=== PATIENT | female | born 1970 | race Asian ===

== ENCOUNTER → 2024-08-02 | Outpatient (CLI) | payer OTHER, SELFPAY ==
--- NOTE | 2024-08-02 | XR_ITS ---
Examination: Lumbar spine, 5 views Technique: Lumbar spine AP, lateral, coned lateral lower lumbar spine, bilateral obliques 5 views Exam date and time: August 02, 2024 1143 hrs. Indications: Low back pain. Findings: Lumbar levoscoliosis 12 degrees No lumbar fracture Mild diffuse lumbar disc narrowing Intact pedicles Impression: Mild diffuse lumbar disc narrowing
== END | disposition home or self-care (01) ==
PROVIDERS: PCP Internal Medicine; Referring Provider Internal Medicine; Visit Provider Internal Medicine
DX: M48.061 Spinal stenosis, lumbar region without neurogenic claudication (principal)
CPT/HCPCS: 72110

== ENCOUNTER → 2024-08-29 | Outpatient (CLI) | payer OTHER, SELFPAY ==
[2024-08-29 10:04] LABS: Collection Type, Urine Clean Catch
[2024-08-29 10:39] LABS: Basophils # (Auto) 0.1 Thou/mm3 (0.0-0.2); Basophils % (Auto) 1 % (0-2.5); Eosinophils # (Auto) 0.2 Thou/mm3 (0.0-0.5); Eosinophils % (Auto) 3 % (0-10); Hematocrit 44.8 % (36.0-46.0); Hemoglobin 14.4 g/dL (12.0-16.0); Immature Granulocytes % (Auto) 0 % (0-0); Immature Granulocytes Auto 0.01 Thou/mm3 (0.00-0.00); Lymphocytes # (Auto) 2.6 Thou/mm3 (1.0-4.8); Lymphocytes % (Auto) 34 % (10-50); Mean Corpuscular HGB Conc 32.1 g/dl (31.0-37.0); Mean Corpuscular Hemoglobin 26.8 pg (25.0-35.0); Mean Corpuscular Volume 83 fL (80-100); Monocytes # (Auto) 0.4 Thou/mm3 (0.0-0.8); Monocytes % (Auto) 5 % (0-12); Neutrophils # (Auto) 4.4 Thou/mm3 (1.8-7.7); Neutrophils % (Auto) 57 % (37-80); Nucleated Red Blood Cell % 0 /100 WBC (0); Platelet Count 297 Thou/mm3 (140-440); RDW Standard Deviation 40.7 fL (36.4-46.3); Red Blood Count 5.37 Miln/mm3 (4.00-5.20); White Blood Count 7.7 Thou/mm3 (3.6-11.0)
[2024-08-29 10:53] LABS: Bilirubin,Urine Negative (Negative); Blood,Urine Trace (Negative); Clarity,Urine Clear (Clear/Hazy); Color,Urine Lt-Yellow (Lt Yel-Yel); Culture Indicated,Urine Not Indicated; Glucose, Urine Negative (Negative); Ketones,Urine Negative (Negative); Leukocyte Esterase,Urine Positive (Negative); Nitrite,Urine Negative (Negative); Protein,Urine Negative (Neg - Trace); RBC,Urine 1 /hpf (0-3); Specific Gravity,Urine 1.026 (1.001-1.035); Squamous Epithelial Cell,Urine 4 /hpf (0-5); Urobilinogen,Urine Negative mg/dL (0.0-1.0); WBC,Urine 6 /hpf (0-5)
[2024-08-29 11:32] LABS: Alanine Aminotransferase 26 U/L (10-49); Albumin, Serum 4.5 gm/dL (3.5-5.0); Albumin/Globulin Ratio 1.5 (1.2-2.2); Alkaline Phosphatase 77 U/L (46-116); Anion Gap 9 (7-16); Aspartate Amino Transferase 20 U/L (0-34); BUN/Creatinine Ratio 24 Ratio (12-20); Bilirubin,Total 0.6 mg/dL (0.3-1.2); Blood Urea Nitrogen 19 mg/dL (9-23); Carbon Dioxide 26.1 mMol/L (20.0-31.0); Cardiac Risk Estimate 3.7 RATIO (3.7-5.6); Chloride 105 mMol/L (98-107); Cholesterol 210 mg/dL (132-200); Creatinine (Component) 0.8 mg/dL (0.6-1.3); Free T4 (Free Thyroxine) 1.21 ng/dL (0.89-1.76); Glucose 127 mg/dL (74-106); HDL Cholesterol 57 mg/dL (40-60); LDL Cholesterol,Calculated 109 mg/dL (0-130); Osmolality,Calculated 283 (275-295); Potassium 4.4 mMol/L (3.4-5.1); Sodium 140 mMol/L (136-145); Thyroid Stimulating Hormone 0.81 uIU/mL (0.55-4.78); Total Protein 7.5 gm/dL (5.7-8.2); Triglycerides 218 mg/dL (30-150); eGFR > 60 See Note
== END | disposition home or self-care (01) ==
LOC: COPL 09:13
PROVIDERS: PCP Internal Medicine; Referring Provider Internal Medicine; Visit Provider Internal Medicine
DX: I10 Essential (primary) hypertension (principal)
CPT/HCPCS: 36415; 80053; 80061; 81001; 84439; 84443; 85025

== ENCOUNTER → 2024-09-02 | Outpatient (CLI) | payer OTHER, SELFPAY ==
[2024-09-02 08:51] LABS: OBS Performed By LAB; OBS QC OK? Yes
[2024-09-02 13:58] LABS: Occult Blood, Stool Negative (Negative); Occult Blood, Stool #2 Negative (Negative); Occult Blood, Stool #3 Negative (Negative)
[2024-09-02 13:59] LABS: OBS Developer Lot # 551749
== END | disposition home or self-care (01) ==
LOC: SLDO 08:40
PROVIDERS: Referring Provider Internal Medicine; Visit Provider Internal Medicine
DX: I10 Essential (primary) hypertension (principal)
CPT/HCPCS: 82270

== ENCOUNTER → 2024-11-09 | Outpatient (CLI) | payer OTHER, SELFPAY ==
[2024-11-09 09:48] LABS: Glucose Estimated Average 134 mg/dL (80-131); Hemoglobin A1C 6.3 % Hgb (4.8-6.0)
== END | disposition home or self-care (01) ==
LOC: COPL 08:06
PROVIDERS: PCP Internal Medicine; Referring Provider Internal Medicine; Visit Provider Internal Medicine
DX: E11.65 Type 2 diabetes mellitus with hyperglycemia (principal)
CPT/HCPCS: 36415; 83036

== ENCOUNTER → 2024-12-06 | Outpatient (CLI) | payer OTHER, SELFPAY ==
--- NOTE | 2024-12-06 08:45 | XR_ITS ---
Examination: Screening digital mammography, bilateral Computer aided detection 3-D breast Tomosynthesis, bilateral Date and time of exam: December 06, 2024 0847 hours Compared to mammograms dating to September 04, 2009 Indication: Screening Technique: Nonmagnified MLO, CC views of the breasts to been obtained, reconstructed from 3-D Tomosynthesis images. R2 computer aided detection program utilized for evaluation of suspicious masses and/or abnormal calcifications. 3-D Tomosynthesis images obtained. Findings: The breasts are heterogeneously dense, which may obscure small masses Benign calcifications. No interval suspicious masses Impression: BI-RADS category II: Benign Findings. Recommend 1 year follow-up mammogram.
== END | disposition home or self-care (01) ==
LOC: CDIM 08:21
PROVIDERS: Referring Provider Internal Medicine; Visit Provider Internal Medicine
DX: Z12.31 Encounter for screening mammogram for malignant neoplasm of breast (principal); R92.333 Mammographic heterogeneous density, bilateral breasts; R92.1 Mammographic calcification found on diagnostic imaging of breast
CPT/HCPCS: 77063; 77067

== ENCOUNTER → 2025-01-16 | Outpatient (CLI) | payer OTHER, SELFPAY ==
[2025-01-17 07:48] LABS: BVAG Candida Negative (Negative); Bacterial Vaginosis Markers Positive (Negative); Candida glabrata Negative (Negative); Candida krusei PCR Negative (Negative); Trichomonas Negative (Negative)
== END | disposition home or self-care (01) ==
LOC: SLDO 14:20
PROVIDERS: Referring Provider Physician Assistant Medical; Visit Provider Physician Assistant Medical
DX: B37.89 Other sites of candidiasis (principal); B76 Hookworm diseases; A59.01 Trichomonal vulvovaginitis
CPT/HCPCS: 81514

== ENCOUNTER → 2025-02-15 | Outpatient (CLI) | payer OTHER, SELFPAY ==
[2025-02-15 10:53] LABS: Glucose Estimated Average 140 mg/dL (80-131); Hemoglobin A1C 6.5 % Hgb (4.8-6.0)
== END | disposition home or self-care (01) ==
LOC: COPL 09:53
PROVIDERS: PCP Internal Medicine; Referring Provider Internal Medicine; Visit Provider Internal Medicine
DX: E11.65 Type 2 diabetes mellitus with hyperglycemia (principal)
CPT/HCPCS: 36415; 83036

== ENCOUNTER 2025-04-29 08:38 | Emergency (ER) | payer OTHER, SELFPAY ==
[2025-04-29 08:47] VITALS: BP 165/97; PULSE 79; RESP 18; TEMP 37.2; O2SAT 98; BMI 23.9
--- NOTE | 2025-04-29 08:53 | PD.EDDENTL ---
ED Dental RME/HPI General Chief complaint: Dental/Oral/Throat Stated complaint: Sore throat X 3 days, cough Time Seen by Provider: 04/29/25 08:43 Arrival date/time: 04/29/25 08:38 Limitations: no limitations RME / HPI RME / HPI Narrative: 54-year-old female with no history of diabetes or chronic illness here for 3 days of illness. States intermittent cough but biggest concern is sore throat bilaterally think she needs antibiotics. No fever. Non-smoker. No chest pain or shortness of breath no significant headaches. No nausea vomiting diarrhea. 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 Related Data Home Medications ?Medication ?Instructions ?Recorded ?Confirmed amlodipine 5 mg tablet 10 mg PO QDAY 02/27/20 11/23/20 Previous Rx's ?Medication ?Instructions ?Recorded diphenhydramine HCl 25 mg capsule 50 mg (2 x 25 mg) PO TID PRN 11/23/20 (Benadryl) allergy symptoms #30 caps amoxicillin 500 mg tablet 500 mg PO TID 10 days #30 tabs 04/29/25 promethazine-DM 6.25 mg-15 mg/5 mL 5 ml PO Q6H #240 mL 04/29/25 oral syrup Allergies Allergy/AdvReac Type Severity Reaction Status Date / Time naproxen (From Naprosyn) Allergy Severe Rash Verified 04/29/25 08:42 Review of Systems Review of Systems Systems Reviewed: All systems reviewed, normal except as documented Constitutional Constitutional: Denies fever(s) ENT Ears, Nose, Mouth, and Throat: Reports as per HPI Cardiovascular Cardiovascular: Denies dyspnea on exertion Respiratory Respiratory: Reports cough and Denies dyspnea on exertion ED Exam General Limitations: Present no limitations General appearance: Present alert and in no apparent distress Head Head exam: Present atraumatic Eye Eye exam: Present normal appearance, PERRL and EOMI ENT ENT exam: Present mucous membranes moist, TM's normal bilaterally and other (Rhinorrhea, erythematous tonsils no exudates) Chest Chest inspection: Present normal inspection and symmetric chest wall rise Respiratory Respiratory exam: Present normal lung sounds bilaterally Cardiovascular Cardiovascular exam: Present regular rate, normal rhythm and normal heart sounds Extremities Exam Extremities exam: Present normal inspection and full ROM Skin Skin exam: Present warm, dry, intact and normal color Course Quality Measures none Vital Signs Vital signs: Vital Signs Temperature 98.9 F 04/29/25 08:47 Pulse Rate 79 04/29/25 08:47 Respiratory Rate 18 04/29/25 08:47 Blood Pressure 165/97 H 04/29/25 08:47 Pulse Oximetry (%) 98 04/29/25 08:47 Oxygen Delivery Method Room Air 04/29/25 08:47 Dental / Oral Patient data External records reviewed:: [facility] previous records Clinical information provided by:: patient Social determinants that could affect healthcare access:: other (specify) (Works long hours difficult to see PCP) Patient has the following chronic illnesses:: None How is presenting disease/condition affected by chronic disease/condition?: no chronic disease Evaluation data The following diagnostics were reviewed and interpreted by me:: other (specify) (None) Lab and/or radiology exams considered but not ordered:: Considered strep flu and COVID swab, however unlikely to change the course of treatment today patient did have a negative COVID test at home Interpretation Summary: None Medications / Prescriptions Medications or Prescriptions considered but not ordered:: Considered IM dose of ABX however opted for oral instead Medication administrations:: None Consultations Consultation(s) initiated? (list below): No Diagnosis Dental Differential Diagnosis: gingival abscess, dental caries, toothache, dental abscess and other (Tonsillitis) Most likely diagnosis given after review of the tests above:: Tonsillitis Cough Admission Indicated Admission indicated?: not indicated Admission Request Was there a request for admission?: No Disposition Plan Disposition Plan: Discharge Discharge Attestation Discharge Attestation: The patient and all family members were given an opportunity to ask questions and understood the discharge instructions. Discharge instructions specifically effects, indications for sooner follow up or return to the emergency department, and the expected course of current diagnosis. Patient condition: Stable Discharge Plan Plan Patient Disposition: HOME (Self Care) Discharge Disposition comment: f/u in 2-3days Prescriptions/Referrals Prescriptions/Med Rec: New amoxicillin 500 mg tablet 500 mg PO TID 10 Days Qty: 30 0RF promethazine-DM 6.25-15 mg/5 mL syrup 5 ml PO Q6H Qty: 240 0RF No Action amlodipine 5 mg Tablet 10 mg PO QDAY diphenhydramine HCl [Benadryl] 25 mg capsule 50 mg PO TID PRN (Reason: allergy symptoms) Qty: 30 0RF Problem List Clinical Impression: Acute tonsillitis, Cough Patient/Caregiver Discharge Instructions Education Materials: Tonsillitis in Adults Print Language: Guamanian Stand Alone Forms: Deloris Award Info., Patient Portal Info Letter PA/APPLIANCE SALES ASSOCIATE Supervising Physician PA/APPLIANCE SALES ASSOCIATE Supervising Physician: Dr. Hayes
== END 2025-04-29 09:03 | disposition home or self-care (01) ==
PROVIDERS: Emergency Provider Emergency Medicine
DX: J03.90 Acute tonsillitis, unspecified (principal); R05.9 Cough, unspecified
CPT/HCPCS: 99281